=== PATIENT | male | born 2005 | race Caucasian/White ===

== ENCOUNTER 2024-03-22 11:22 | Emergency (ER) | payer OTHER, SELFPAY ==
[2024-03-22 11:44] VITALS: BP 137/89; PULSE 96; RESP 18; TEMP 36.2; O2SAT 95; BMI 23.3
--- NOTE | 2024-03-22 12:37 | ED.GENADULT ---
HPI - General Adult General Date Seen: 03/22/24 Chief complaint: Back Injury/Pain Stated complaint: Back pain Time Seen by Provider: 03/22/24 12:23 History of Present Illness HPI narrative: Patient is a 18-year-old generally healthy [employer] student who presents for evaluation of some right-sided low back pain, more at the sciatic notch with some radiation into the right leg. He says it has been there for about a week, last night it kept him from sleeping and having some trouble sitting in class is because more uncomfortable when he sits. He has been taking ibuprofen without relief. He has not had any fevers, unexpected weight loss, night sweats, weakness, numbness or bowel or bladder changes. He did not have any specific injury. No history of similar symptoms. General health is good. He denies any drug or alcohol use. Smokes socially. Related Data Home Medications ?Medication ?Instructions ?Recorded ?Confirmed No Known Home Medications 03/22/24 03/22/24 Allergies Allergy/AdvReac Type Severity Reaction Status Date / Time No Known Drug Allergies Allergy Verified 03/22/24 11:44 Review of Systems Status of ROS: Reports: 10 or more systems reviewed and unremarkable except as noted in History and below Exam Narrative: Exam Narrative: Vital signs reviewed In general, alert, nontoxic Head: Normocephalic, atraumatic. Eyes: Sclera clear. Pupils equal and reactive. ENT: Mucous membranes moist. Back: He has some mild tenderness at the sciatic notch, does not have a lot of other muscular tenderness. Extremities: Well perfused, pulses intact. No significant edema. Neurologic: Alert, conversant. Speech fluent, face symmetric. Moves all extremities equally. Strength equal in bilateral lower extremities. Sensation intact to light touch. Skin: Warm, dry well perfused. Affect: Normal. Const: Vital Signs, click to edit/add: Vital Signs - 24 hr 03/22/24 11:44 Temperature 97.2 F L Pulse Rate [Pulse Oximeter] 96 Respiratory Rate 18 Blood Pressure [Ri ght Forearm] 137/89 Pulse Oximetry 95 Oxygen Delivery Me thod Room Air Documenting provider has reviewed patient's vital signs: yes Course Course ED Course: No red flag symptoms to suggest that he needs additional workup today. Discussed with him I think it is relatively unlikely given his age that this represents disc herniation, sciatica is a possibility, also may be just general muscular symptoms. I prescribed Flexeril for him which he can use at night, discussed that this may help with sleep a little bit. Will put him on a short course of prednisone as well to see if that helps him symptomatically. Reviewed that this should improve over the next couple weeks, if not he should be seen by primary care. Return any time for acute worsening such as weakness, fevers, bowel bladder changes etcetera. Vital Signs Vital signs: Initial Vital Signs Temperature 97.2 F L 03/22/24 11:44 Temperature Source Temporal Artery Scan 03/22/24 11:44 Pulse Rate 96 03/22/24 11:44 Pulse Rhythm Regular 03/22/24 11:44 Respiratory Rate 18 03/22/24 11:44 Blood Pressure 137/89 03/22/24 11:44 Blood Pressure Mean 105 03/22/24 11:44 Blood Pressure Position Standing 03/22/24 11:44 Pulse Oximetry 95 03/22/24 11:44 Oxygen Delivery Method Room Air 03/22/24 11:44 Vital Signs Temperature 97.2 F L 03/22/24 11:44 Pulse Rate 96 03/22/24 11:44 Respiratory Rate 18 03/22/24 11:44 Blood Pressure 137/89 03/22/24 11:44 Pulse Oximetry 95 03/22/24 11:44 Oxygen Delivery Method Room Air 03/22/24 11:44 Temperature 97.2 F L 03/22/24 11:44 Pulse Rate 96 03/22/24 11:44 Respiratory Rate 18 03/22/24 11:44 Blood Pressure 137/89 03/22/24 11:44 Pulse Oximetry 95 03/22/24 11:44 Oxygen Delivery Method Room Air 03/22/24 11:44 Discharge Plan Discharge Clinical Impression: Sciatica Patient Disposition: Home, Self-Care Condition: Stable Instructions: Sciatica (ED), Back Pain (ED) Additional Instructions: Take the prednisone as prescribed. Continue taking ibuprofen, 400 mg 3 times daily +/-1000 mg of Tylenol at the same time if you needed for additional pain control. Flexeril can be used particularly at night. If you are not improving over the next couple of weeks, you should see primary care. If you have severe uncontrolled pain, new symptoms such as fever, weakness, etcetera, return to the ER at any time. Prescriptions: No Action No Known Home Medications Stand Alone Forms: [employer] Info Instructions
== END 2024-03-22 12:52 | disposition home or self-care (01) ==
PROVIDERS: Emergency Provider Emergency Medicine
DX: M54.41 Lumbago with sciatica, right side (principal)
CPT/HCPCS: 99283; 99284